=== PATIENT | female | born 1980 | race Caucasian/White ===

== ENCOUNTER 2016-05-06 10:28 | Outpatient (CLI) | payer MEDICAID ==
[~2016-05-06] VITALS: Ht 157.5 cm; Wt 78.7 kg
[~2016-05-06 10:28] MED LIST: FERR325C PO; PREN1TAB49; PREN1TAB49 PO; [UNRECOGNIZED DRUG - CODE] PO
[2016-05-06 10:58] VITALS: Ht 157.5 cm; Wt 78.7 kg
[2016-05-06 10:59] VITALS: BP 101/61; RESP 18
[2016-05-06] MEDS ORDERED: LACTATED RINGER'S 1,000 ML IV STA (16:28)
[2016-05-06] MEDS ORDERED: TERBUTALINE 1 MG/ML INJ SC PRN (16:30)
[2016-05-06] MEDS ORDERED: TERBUTALINE 1 ML ONE (16:32)
[2016-05-06] MEDS ORDERED: LACTATED RINGER'S 1,000 ML IV SCH (17:30)
--- NOTE | 2016-05-06 18:13 | HP ---
Date/Time of Note Date/Time of Note DATE: 05/06/16 TIME: 18:04 OB - History Hx of Present Free Text/Dictation Triage H&P Pt is a 35yo at 38+3 who presented to triage with c/o painful UCs since 0900. Pt reports normal FM, denies LOF or VB. Pt desires an elective Primary Section due to desire for tubal ligation at the time of her delivery and her inability to have an interval tubal. Estimated Due Date: May 17, 2016 : 5 Para: 2 Care: Good Care Obstetrical Complications: None Medical Complications: None Past Family/Social History * Past Medical, Surgical, Family and Obstetric Histories reviewed from chart. OB Admission Exam Vital Signs Vital Signs Vital Signs Date Time Temp Pulse Resp B/P Pulse Ox O2 Delivery O2 Flow Rate FiO2 05/06/16 10:59 98.2 18 101/61 Room Air Physical Exam Cervical Dilatation: None Effacement: Other (60%) Station: -2 Membranes: Intact Heart Rate: 120's Accelerations: Accelerations Present Decelerations: No Decelerations Varibility: Moderate Contractions on Admission: < 5 Minutes Apart (initially, now acontractile) OB Assessment/Plan Other Assessment: Term contractions Other plan: Patient without cervical change manager 2 hours. Given frequent q3 min UCs, Dr. Lopez requested pt receive Terbutaline and IV hydration. After single dose of Terbutaline and hydration, no further contractions were noticed on toco. FWB reassuring, reactive NST. Pt appropriate for d/c home with outpatient f/up and C /S scheduling with Dr. Huffman as scheduled on 05/10/16. FKC, labor and ROM precautions reviewed. Questions answered to patient's satisfaction. LIZZETTE DONOVAN MD May 06, 2016 18:13
== END 2016-05-06 18:50 | disposition home or self-care (01) ==
LOC: OBT 10:28 → L-D 10:29 → OBT 18:50
PROVIDERS: ATTEND Obstetrics & Gynecology
DX: O47.1 False labor at or after 37 completed weeks of gestation (principal); Z3A.38 38 weeks gestation of pregnancy
CPT/HCPCS: 36415; 96360; 96372; J3105; J7120; Z7500; G0463

== ENCOUNTER 2016-05-10 15:07 | Inpatient (IN) | payer BC ==
[~2016-05-10] VITALS: Ht 157.5 cm; Wt 79.1 kg
[~2016-05-10 15:07] MED LIST changes: -PREN1TAB49; -PREN1TAB49 PO
[2016-05-10 15:36] VITALS: BP 90/56; PULSE 104; RESP 18; Ht 157.5 cm; Wt 79.1 kg
--- NOTE | 2016-05-10 16:40 | TRIAGE ---
OB Triage Datetime Report Generated by CPN: 05/10/2016 16:40 Datetime: 05/10/2016 15:59 Vaginal Exam Dilatation (cms): 2.0 Effacement (%): 50 Station: -3 Exam By: MAY Vaginal Bleeding: None Cervix, Consistency: Soft Cervix, Position: Posterior Datetime: 05/10/2016 15:30 Assessment Type: Triage Maternal Assessment Level of Consciousness: Fully Conscious DTR's/Clonus: DTRs 2+; No Clonus Headache: Denies Blurred Vision: No Respiratory Effort: Unlabored; Regular Rhythm; Equal Expansion Breath Sounds, Left: Clear and Equal Breath Sounds, Right: Clear and Equal Nausea/Vomiting: Denies RUQ Epigastric Pain: Denies Lower Extremities Edema: None Degree: None Upper Extremities Edema: None Degree: None Facial Edema: None Fall Risk Assessment History of Falling: (0) No Secondary Diagnosis: (0) No Ambulatory Aid: (0) Bedrest/Nurse Assist IV Therapy: (0) No Gait: (0) Normal/Bedrest/Immobile Mental Status: (0) Oriented to Own Ability Fall Score: 0 Fall Risk Score Definition: No Risk: No action required Datetime: 05/10/2016 15:21 Time of Arrival: 05/10/2016 15:00 EGA: 39.0 Arrived By: Ambulatory Arrived From: Office Chief Complaint: PT SENT IN FOR C/O UC'S Movement: Present Contractions: Irregular Rupture of Membranes: Denies Vaginal Bleeding: None Vaginal Discharge: Denies Recent Sexual Intercouse: Yes Abdominal Trauma: Not Applicable Patient Complaints: Contractions; Cramping Time Provider Notified: 05/10/2016 16:35 Provider Notified: DELSHAD Initial Plan: EFM Datetime: 05/06/2016 17:13 Stage of : OB Triage Labor Evaluation Frequency: x1 Monitor Mode: External Duration (sec)2399: 60 Quality: Mild Resting Tone Iselin: Relaxed Heart Rate FHR Baseline Rate: 125 FHR Baseline Changes: No Baseline Change Variability: Moderate 6-25 bpm Accelerations: 15X15 Decelerations: None Category: Category I Datetime: 05/06/2016 16:55 Stage of : OB Triage Datetime: 05/06/2016 16:39 Stage of : OB Triage Datetime: 05/06/2016 15:30 Labor Evaluation Frequency: IRREGULAR Monitor Mode: External Duration (sec)2399: 40-110 Quality: Moderate Pattern: Normal: <= 5 Contractions in 10 Minutes Resting Tone Iselin: Relaxed Heart Rate FHR Baseline Rate: 135 Monitor Mode: External US FHR Baseline Changes: No Baseline Change Variability: Moderate 6-25 bpm Accelerations: 15X15 Decelerations: None Category: Category I Datetime: 05/06/2016 14:30 Labor Evaluation Frequency: IRREGULAR Monitor Mode: External Duration (sec)2399: 40-100 Quality: Moderate Pattern: Normal: <= 5 Contractions in 10 Minutes Resting Tone Iselin: Relaxed Heart Rate FHR Baseline Rate: 135 Monitor Mode: External US FHR Baseline Changes: No Baseline Change Variability: Moderate 6-25 bpm Accelerations: 15X15 Decelerations: None Category: Category I Datetime: 05/06/2016 14:21 Stage of : OB Triage Vaginal Exam Dilatation (cms): 0.0 Effacement (%): 60 Station: -3 Exam By: M BARBOUR Vaginal Bleeding: None Cervix, Consistency: Soft Cervix, Position: Posterior Datetime: 05/06/2016 13:30 Stage of : OB Triage Labor Evaluation Frequency: 2-7 Monitor Mode: External Duration (sec)2399: 40-120 Quality: Mild Resting Tone Iselin: Relaxed Heart Rate FHR Baseline Rate: 130 FHR Baseline Changes: No Baseline Change Variability: Moderate 6-25 bpm Accelerations: 15X15 Decelerations: None Category: Category I Datetime: 05/06/2016 12:30 Stage of : OB Triage Labor Evaluation Frequency: 3-7 Monitor Mode: External Duration (sec)2399: 40-140 Quality: Mild Resting Tone Iselin: Relaxed Heart Rate FHR Baseline Rate: 135 Monitor Mode: External US FHR Baseline Changes: No Baseline Change Variability: Moderate 6-25 bpm Accelerations: 15X15 Decelerations: Early Category: Category I Datetime: 05/06/2016 11:21 Vaginal Exam Dilatation (cms): 0.0 Effacement (%): 60 Station: -3 Exam By: A GHUKASYNA Datetime: 05/06/2016 11:15 Labor Evaluation Frequency: 2-4 Monitor Mode: External Duration (sec)2399: 40-100 Quality: Moderate Pattern: Normal: <= 5 Contractions in 10 Minutes Resting Tone Iselin: Relaxed Heart Rate FHR Baseline Rate: 140 Monitor Mode: External US Variability: Moderate 6-25 bpm Accelerations: 15X15 Decelerations: None Category: Category I Datetime: 05/06/2016 11:05 Assessment Type: Admission Assessment Maternal Assessment Level of Consciousness: Fully Conscious DTR's/Clonus: DTRs 2+; No Clonus Headache: Denies Blurred Vision: No Respiratory Effort: Unlabored; Regular Rhythm; Equal Expansion Breath Sounds, Left: Clear and Equal Breath Sounds, Right: Clear and Equal Nausea/Vomiting: Denies RUQ Epigastric Pain: Denies Lower Extremities Edema: None Degree: None Upper Extremities Edema: None Degree: None Facial Edema: None Fall Risk Assessment History of Falling: (0) No Secondary Diagnosis: (0) No Ambulatory Aid: (0) Bedrest/Nurse Assist IV Therapy: (0) No Gait: (0) Normal/Bedrest/Immobile Mental Status: (0) Oriented to Own Ability Fall Score: 0 Fall Risk Score Definition: No Risk: No action required Datetime: 05/06/2016 11:01 Time of Arrival: 05/06/2016 10:20 EGA: 38.3 Arrived By: Ambulatory Arrived From: Home Chief Complaint: UC'S SINCE 0400 Movement: Present Contractions: Regular Time Contractions Began: 05/06/2016 04:00 Rupture of Membranes: Denies Vaginal Bleeding: None Vaginal Discharge: Denies Recent Sexual Intercouse: Denies Abdominal Trauma: Not Applicable Patient Complaints: Contractions Time Provider Notified: 05/06/2016 11:36 Provider Notified: DR SKINNER Initial Plan: NST, VE Datetime: 03/22/2016 15:30 Labor Evaluation Frequency: IRREGULAR Monitor Mode: External Duration (sec)2399: 40-100 Duration (sec)2399: 50-90 Quality: Mild Pattern: Normal: <= 5 Contractions in 10 Minutes Resting Tone Iselin: Relaxed Heart Rate FHR Baseline Rate: 140 Monitor Mode: External US FHR Baseline Changes: No Baseline Change Variability: Minimal - Undetectable to <=5 bpm Accelerations: 15X15 Accelerations: 10X10 Decelerations: None Category: Category II Datetime: 03/22/2016 14:45 Labor Evaluation Frequency: OCCAS Monitor Mode: External Duration (sec)2399: 50-100 Quality: Mild Pattern: Normal: <= 5 Contractions in 10 Minutes Resting Tone Iselin: Relaxed Heart Rate FHR Baseline Rate: 140 Monitor Mode: External US FHR Baseline Changes: No Baseline Change Variability: Minimal - Undetectable to <=5 bpm Accelerations: 15X15 Decelerations: None Category: Category II Datetime: 03/22/2016 14:15 Labor Evaluation Frequency: IRREGULAR Monitor Mode: External Duration (sec)2399: 40-110 Quality: Mild Pattern: Normal: <= 5 Contractions in 10 Minutes Resting Tone Iselin: Relaxed Heart Rate FHR Baseline Rate: 140 Monitor Mode: External US FHR Baseline Changes: No Baseline Change Variability: Minimal - Undetectable to <=5 bpm Accelerations: 10X10 Decelerations: None Category: Category II Datetime: 03/22/2016 13:53 Vaginal Exam Dilatation (cms): 0.0 Effacement (%): 0 Station: -4 Exam By: Kael IRELAND Datetime: 03/22/2016 13:41 Assessment Type: Admission Assessment Maternal Assessment Level of Consciousness: Fully Conscious DTR's/Clonus: DTRs 2+; No Clonus Headache: Denies Blurred Vision: No Respiratory Effort: Unlabored; Regular Rhythm; Equal Expansion Breath Sounds, Left: Clear and Equal Breath Sounds, Right: Clear and Equal Nausea/Vomiting: Denies RUQ Epigastric Pain: Denies Lower Extremities Edema: None Degree: None Upper Extremities Edema: None Degree: None Facial Edema: None Fall Risk Assessment History of Falling: (0) No Secondary Diagnosis: (0) No Ambulatory Aid: (0) Bedrest/Nurse Assist IV Therapy: (0) No Gait: (0) Normal/Bedrest/Immobile Mental Status: (0) Oriented to Own Ability Fall Score: 0 Fall Risk Score Definition: No Risk: No action required Datetime: 03/22/2016 13:40 EGA: 32.0 Datetime: 03/22/2016 13:39 Time of Arrival: 03/22/2016 13:12 Arrived By: Ambulatory Arrived From: Home Chief Complaint: ABDOMINAL PAIN Movement: Present Contractions: Irregular Time Contractions Began: 03/21/2016 10:00 Rupture of Membranes: Denies Vaginal Bleeding: None Vaginal Discharge: Denies Recent Sexual Intercouse: Denies Abdominal Trauma: Not Applicable (Annotations: Data stored by CPN on behalf of user) Patient Complaints: Contractions Time Provider Notified: 03/22/2016 13:49 Provider Notified: DR JOHNSON Initial Plan: NST, CERVICAL LENGHT, MARITZA, EFW, IV HYDRATION, CBC, CMP, UA, FFN AND VE
[2016-05-10] MEDS ORDERED: LACTATED RINGER'S 1,000 ML IV SCH (16:49)
[2016-05-10] MEDS ORDERED: MISOPROSTOL 200 MCG TAB PR PRN (17:00)
[2016-05-10] MEDS ORDERED: OXYTOCIN 30 UNITS/LR 500 ML IV PRN (17:00)
[2016-05-10] MEDS ORDERED: OXYTOCIN 30 UNITS/LR 500 ML IV SCH (17:00)
[2016-05-10] MEDS ORDERED: CEFAZOLIN 2 GM/50 ML (PMX) 50 ML IVPB SCH (17:00)
[2016-05-10] MEDS ORDERED: METHYLERGONOVINE 0.2 MG INJ IM PRN (17:00)
[2016-05-10] MEDS ORDERED: CARBOPROST 250 MCG INJ IM PRN (17:00)
[2016-05-10 17:05] LABS: BASOPHILS % 0.2 % (0.0-2.0); EOSINOPHILS % 0.4 % (0.0-7.0); HEMATOCRIT 37.2 % (37.0-47.0); HEMOGLOBIN 12.5 g/dl (12.0-16.0); LYMPHOCYTES # 1.9 10^3/ul (0.8-2.9); LYMPHOCYTES % 26.7 % (15.0-51.0); MEAN CORPUSCULAR HEMOGLOBIN 30.6 pg (29.0-33.0); MEAN CORPUSCULAR HGB CONC 33.7 g/dl (32.0-37.0); MEAN CORPUSCULAR VOLUME 90.9 fl (82.0-101.0); MONOCYTE # 0.5 10^3/ul (0.3-0.9); MONOCYTES % 6.7 % (0.0-11.0); NEUTROPHIL # 4.8 10^3/ul (1.6-7.5); PLATELET COUNT 279 10^3/UL (140-440); RED BLOOD COUNT 4.09 10^6/ul (4.20-5.40); UNCORRECTED WBC 7.3 10^3/ul (4.8-10.8); WHITE BLOOD COUNT 7.3 10^3/ul (4.8-10.8)
[2016-05-10 17:15] LABS: INR 0.96; PROTIME 12.8 Sec (12.2-14.2)
[2016-05-10 17:16] LABS: PARTIAL THROMBOPLASTIN TIME 27.5 Sec (25.0-35.0)
[2016-05-10 17:24] LABS: CONDITION 1; LH ANALYZER COMMENTS 1
[2016-05-10] MEDS ORDERED: LACTATED RINGER'S 1,000 ML IV PRN (18:00)
[2016-05-10] MEDS ORDERED: DEXTROSE 5%-LR 1,000 ML IV SCH (20:00)
--- NOTE | 2016-05-10 21:45 | PREOPHP ---
DATE OF ADMISSION: 05/10/2016 HISTORY OF PRESENT ILLNESS: A 35-year-old female 5, para 2-0-2-2, estimated delivery 2016 at 39 weeks' gestation presented with labor contractions. PAST SURGICAL HISTORY: Unremarkable. ALLERGIES: NO KNOWN ALLERGIES. COURSE: Significant for gestational diabetes. FAMILY HISTORY: Noncontributory. PHYSICAL EXAMINATION: VITAL SIGNS: The patient is afebrile. Vital signs stable. HEAD, NECK, AND CHEST: Within normal limits. ABDOMEN: Soft, nontender and gravid. EXTREMITIES: Within normal limits. NEUROLOGIC: Within normal limits. PELVIC: Cervix is 2 cm dilated. IMPRESSION: at 39 weeks with gestational diabetes. The patient does not desire a trial o f labor and requests delivery by elective primary section. The patient also desires surgic al sterilization. PLAN: Delivery by primary section and bilateral tubal ligation. Risks, benefits, and alte rnatives of the procedures were explained to the patient. The patient has been counseled about all of her contraceptive options. It was explained to the patient that with bilateral tubal ligation th ere is a chance of failure resulting in ectopic and/or intrauterine . After coun seling, the patient said she understood and gave informed consent for the procedures. Dictated By: ROBERTO TORRES/PHAM Conf#: [id number] DID#: [id number]
[2016-05-10] MEDS ORDERED: DIPHENHYDRAMINE 50 MG INJ IV PRN (22:30)
[2016-05-10] MEDS ORDERED: NALOXONE (0.4 MG/ML) INJ IV PRN (22:30)
[2016-05-10] MEDS ORDERED: HYDROmorphONE 1 MG/ML SYG IV PRN ×2 (22:30)
[2016-05-10] MEDS ORDERED: ZOLPIDEM 5 MG TAB PO PRN (22:30)
[2016-05-10] MEDS ORDERED: ONDANSETRON 4 MG INJ IV PRN (22:30)
--- NOTE | 2016-05-10 23:27 | OPR ---
DATE OF OPERATION: 05/10/2016 PREOPERATIVE DIAGNOSES: at 39 weeks with gestational diabetes. The patient desires elect joaquín primary section and bilateral tubal ligation. POSTOPERATIVE DIAGNOSES: at 39 weeks with gestational diabetes. The patient desires elec tive primary section and bilateral tubal ligation. OPERATION PERFORMED: Primary low transverse section and bilateral tubal ligation. SURGEON: Roberto Huffman MD END POLISHER: Tyron Barr MD ANESTHESIA: Spinal. ANESTHESIOLOGIST: Dr. Graf PROCEDURE: The patient was taken to operating room and placed on the operating table. After succes sful spinal anesthesia was given, the patient was placed in supine position. The area was prepared and draped in the usual sterile fashion. Spinal anesthesia was tested and was satisfactory. Using scalpel, Pfannenstiel incision was made about 2 fingerbreadths above the symphysis pubis. The incis ion was carried to fascia. The fascia was incised and extended bilaterally with Lara scissors. Two Kochers were used to separate the fascia from the muscle. The muscle was dissected down to periton eum. The peritoneum was bluntly entered. Using scalpel, a small transverse incision was made in th e dorsum of the uterus. Upon entering uterine cavity, bandage scissors were inserted to extend the incision bilaterally, curved up. Baby was delivered from cephalic presentation. After suctioning c lear of amniotic fluid, baby was handed off to the cap inspector in attendance. Apgars were 9 and 9 . The placenta was delivered without difficulty. The uterus was closed with #1 Vicryl continuous l ocked. After assuring hemostasis, both ovaries and tubes were inspected, all looked normal. The ri ght fallopian tube was grasped with Dharmesh clamp. Using 0 plain suture ligature, a 5 cm segment of the right fallopian tube was doubly ligated. Using Metzenbaum scissors, a portion of the right fal lopian tube above the ligated area was excised and sent to Pathology. Same procedure was repeated o n left fallopian tube. After assuring hemostasis, peritoneal cavity was irrigated with warm saline. The peritoneum was closed with 2-0 Vicryl continuous. The fascia was closed with #1 Vicryl contin uous in 2 segments. The subcutaneous tissue was reapproximated with 2-0 plain. The skin was closed with henry. ESTIMATED BLOOD LOSS: 600 mL COMPLICATIONS: None. COUNTS: All counts were correct. Dictated By: ROBERTO TORRES/PHAM Conf#: [id number] DID#: [id number]
[2016-05-11] MEDS: KETOROLAC 30 MG INJ IV PRN ×3 (01:08→18:18)
--- NOTE | 2016-05-11 01:38 | DELSUM ---
Delivery Summary A-C Datetime Report Generated by CPN: 05/11/2016 01:37 DELIVERY PERSONNEL Transmission Systems Operator: Canuto, Jemima MATERNAL INFORMATION Delivery Anesthesia: Spinal Medications in Delivery: SEE ANESTHESIA RECORD Estimated Blood Loss (ml): 550 Placenta Cultured: No Maternal Complications: Other Other Maternal Complications: GDM LABOR SUMMARY EDC: 05/17/2016 00:00 No. Babies in Womb: 1 Attempted: No Labor Anesthesia: None LABOR INFORMATION Reason for Induction: Not Applicable Onset of Labor: 05/10/2016 11:00 Oxytocin: N/A Group B Beta Strep: Negative Antibiotics # of Doses: 1 Antibiotics Time of Last Dose: ANCEF 2 GMS AT 2145 Steroids Given: None Reason Steroids Not Administered: Not Applicable MEMBRANES Membranes Rupture Method: Artificial Rupture of Membranes: 05/10/2016 21:59 Length of Rupture (hr): 0.02 Amniotic Fluid Color: Clear Amniotic Fluid Amount: Moderate Amniotic Fluid Odor: None STAGES OF LABOR Stage 3 hr: 0 Stage 3 min: 1 Total Time in Labor hr: 11 Total Time in Labor min: 1 CSECTION DELIVERY Primary Indication: Other Other Primary Indication: PT'S CHOICE CSection Urgency: Non Elective CSection Incidence: Primary Labor: Labor Elective: Elective CSection Incision: Lower Uterine Transverse Sterilization Procedure: [place] BABY A INFORMATION Delivery Date/Time: 05/10/2016 22:00 Method of Delivery: Born in Route : No : N/A Forceps: N/A Vacuum Extraction: N/A Shoulder Dystocia : N/A SHOULDER DYSTOCIA BABY A Delivery Date/Time: 05/10/2016 22:00 PRESENTATION/POSITION BABY A Presentation: Cephalic Cephalic Presentation: Vertex Vertex Position: Left Occipital Anterior Breech Presentation: N/A PLACENTA INFORMATION BABY A Placenta Delivery Time : 05/10/2016 22:01 Placenta Method of Delivery: Manual Removal Placenta Status: Delivered SCORES BABY A Heart Rate 1 min: >100 bpm Resp Effort 1 min: Good Cry Reflex Irritability 1 min: Cough/Sneeze/Pulls Away Muscle Tone 1 min: Active Motion Color 1 min: Body [place], Extremit Blue Resuscitation Effort 1 min: Tactile Stimulation SCORE 1 MIN: 9 Heart Rate 5 min: >100 bpm Resp Effort 5 min: Good Cry Reflex Irritability 5 min: Cough/Sneeze/Pulls Away Muscle Tone 5 min: Active Motion Color 5 min: Body [place], Extremit Blue Resuscitation Effort 5 min: Tactile Stimulation SCORE 5 MIN: 9 INFANT INFORMATION BABY A Gestational Age at Delivery: 39.0 Gestational Status: Full Term- 39- 40.6 Weeks Outcome : Liveborn Condition : Stable Sex: Female IDENTIFICATION/MEDS BABY A ID Band Number: [id number] ID Band Location: Right Leg; Left Arm Sensor Applied: Yes Sensor Number: [id number] Sensor Location : Cord Clamp Vitamin K Given : Not Given Erythromycin Given: Not Given WEIGHT/LENGTH BABY A Birthweight (gm): 4105 Weight (lb): 9 Infant Weight (oz): 1 Infant Length (in): 20.00 Infant Length (cm): 50.80 CORD INFORMATION BABY A No. Cord Vessels: 3 Nuchal Cord : N/A Cord Blood Taken: Yes Infant Suction: Nose; Pharynx ASSESSMENT BABY A Infant Complications: None Physical Findings at Delivery: Within Normal Limits Infant Respirations: Appears Normal Poultry Farmer Egg/ALS Called : No Care By: HARDEEP Transferred To: Remains with Mother
[2016-05-11 02:15] VITALS: BP 112/58; PULSE 70; RESP 18
[2016-05-11] MEDS ORDERED: LANOLIN 7 GM TUBE TOP PRN (03:00)
[2016-05-11] MEDS ORDERED: MISOPROSTOL 200 MCG TAB PR PRN (03:00)
[2016-05-11] MEDS ORDERED: CARBOPROST 250 MCG INJ IM PRN (03:00)
[2016-05-11] MEDS ORDERED: METHYLERGONOVINE 0.2 MG INJ IM PRN (03:00)
[2016-05-11] MEDS ORDERED: OXYTOCIN 30 UNITS/LR 500 ML IV PRN (03:00)
[2016-05-11 04:00] VITALS: BP 105/59; PULSE 76; RESP 18
[2016-05-11] MEDS: LACTATED RINGER'S 1,000 ML IV SCH ×3 (06:57→18:46)
[2016-05-11 08:00] VITALS: BP 97/52; PULSE 85; RESP 18
--- NOTE | 2016-05-11 08:28 | QN ---
Documentation Comment No complaint. Afebrile VSS Abdomen soft POD #1 Stable Ambulate Advance diet. ROBERTO JOHNSON MD May 11, 2016 08:28
[2016-05-11 08:33] LABS: BASOPHILS % 0.2 % (0.0-2.0); EOSINOPHILS % 0.1 % (0.0-7.0); HEMATOCRIT 33.7 % (37.0-47.0); HEMOGLOBIN 11.6 g/dl (12.0-16.0); LYMPHOCYTES % 20.3 % (15.0-51.0); MEAN CORPUSCULAR HEMOGLOBIN 31.7 pg (29.0-33.0); MEAN CORPUSCULAR HGB CONC 34.5 g/dl (32.0-37.0); MEAN CORPUSCULAR VOLUME 91.9 fl (82.0-101.0); MEAN PLATELET VOLUME 8.2 fl (7.4-10.4); MONOCYTE # 0.5 10^3/ul (0.3-0.9); NEUTROPHIL # 7.3 10^3/ul (1.6-7.5); NEUTROPHILS % 74.4 % (39.0-77.0); PLATELET COUNT 249 10^3/UL (140-440); RED BLOOD COUNT 3.67 10^6/ul (4.20-5.40); RED CELL DISTRIBUTION WIDTH 18.4 % (11.5-14.5); UNCORRECTED WBC 9.9 10^3/ul (4.8-10.8); WHITE BLOOD COUNT 9.9 10^3/ul (4.8-10.8)
[2016-05-11 08:39] LABS: CONDITION 1; LH ANALYZER COMMENTS 1
[2016-05-11 12:00] VITALS: BP 91/53; PULSE 84; RESP 16
[2016-05-11 16:00] VITALS: BP 97/56; PULSE 85; RESP 18
[2016-05-11 20:00] VITALS: BP 107/61; PULSE 77; RESP 19
[2016-05-11] MEDS: SENNA/DOCUSATE NA (8.6MG/50MG) TAB PO SCH (21:06)
[2016-05-11] MEDS ORDERED: OXYCODONE/ACETAMINOPHEN (5/325) TAB PO PRN (21:40)
[2016-05-11] MEDS: OXYCODONE/ACETAMINOPHEN (5/325) TAB PO PRN (21:54)
[2016-05-11] MEDS: IBUPROFEN 800 MG TAB PO SCH (21:54)
[2016-05-12] MEDS: OXYCODONE/ACETAMINOPHEN (5/325) TAB PO PRN ×3 (03:32→22:19)
[2016-05-12 04:00] VITALS: BP 92/64; PULSE 90; RESP 18
[2016-05-12] MEDS: IBUPROFEN 800 MG TAB PO SCH ×3 (05:40→21:09)
[2016-05-12] MEDS: LACTATED RINGER'S 1,000 ML IV SCH ×2 (07:40→07:41)
[2016-05-12] MEDS: OXYTOCIN 30 UNITS/LR 500 ML IV SCH (07:40)
[2016-05-12] MEDS ORDERED: INFLUENZA VIRUS VACCINE 0.5 ML (DISPENSING) IM* ONE (09:00)
[2016-05-12] MEDS: SENNA/DOCUSATE NA (8.6MG/50MG) TAB PO SCH ×2 (09:33→21:09)
[2016-05-12 16:00] VITALS: BP 104/63; PULSE 79; RESP 18
[2016-05-12 20:00] VITALS: BP 94/60; PULSE 86; RESP 18
[2016-05-13 04:00] VITALS: BP 95/55; PULSE 81; RESP 18
--- NOTE | 2016-05-13 04:26 | DS ---
DATE OF ADMISSION: 05/10/2016 DATE OF DISCHARGE: 05/13/2016 ADMITTING DIAGNOSIS: at term with gestational diabetes, in labor. HISTORY: A 35-year-old female 5, para 2-0-2-2 at the time of admission, para 3-0-2-3 at the time of discharge with term , presented with labor contractions. course signific ant for gestational diabetes. The patient requested elective primary section and also bila teral tubal ligation. On 05/10/2016, after obtaining informed consent, the patient underwent a prim amalia low transverse section and bilateral tubal ligation. The patient's operation was uncom plicated. Postoperatively, the patient was given clear liquid diet which was advanced to regular di et which she tolerated well. The patient is discharged on postop day #3 after having had adequate b ladder and bowel function. CONDITION ON DISCHARGE: Stable. DISCHARGE INSTRUCTIONS DIET: Regular. ACTIVITIES: Pelvic rest and no strenuous activities. MEDICATIONS: 1. Motrin as needed for pain. 2. Continue with vitamins and ferrous sulfate. FOLLOWUP: Follow up in clinic in 1 week. FINAL DIAGNOSES 1. Term delivered by section. 2. Elective primary section. 3. Gestational diabetes. 4. Voluntary sterilization. 5. Mother with single liveborn. Dictated By: ROBERTO TORRES/PHAM Conf#: [id number] DID#: [id number]
[2016-05-13] MEDS: IBUPROFEN 800 MG TAB PO SCH ×2 (06:03→14:28)
[2016-05-13 07:40] VITALS: BP 101/65; PULSE 86; RESP 17
[2016-05-13] MEDS ORDERED: DIPHTH/TET/ACEL PERTUSS (ADULT) 0.5 ML VIAL IM* ONE (09:00)
[2016-05-13] MEDS: SENNA/DOCUSATE NA (8.6MG/50MG) TAB PO SCH (09:14)
[2016-05-13] MEDS: OXYCODONE/ACETAMINOPHEN (5/325) TAB PO PRN (12:50)
[2016-05-13 15:30] VITALS: BP 105/68; PULSE 79; RESP 19
== END 2016-05-13 16:45 | disposition home or self-care (01) | DRG 766 ==
LOC: L-D 15:07 → OBT 15:07 → L-D 16:30 → OBT 16:30 → L-D 21:27 → PP1 05-11 02:07
PROVIDERS: ADMIT Obstetrics & Gynecology; ATTEND Obstetrics & Gynecology
PROC: 0UL70ZZ Occlusion of Bilateral Fallopian Tubes, Open Approach (ICD-10-PCS; 2016-05-10)
PROC: 10D00Z1 Extraction of Products of Conception, Low, Open Approach (ICD-10-PCS; principal; 2016-05-10 22:30)
PROC: 3E00X4Z Introduction of Serum, Toxoid and Vaccine into Skin and Mucous Membranes, External Approach (ICD-10-PCS; 2016-05-13)
DX: O24.429 Gestational diabetes mellitus in childbirth, unspecified control (principal); Z23 Encounter for immunization; Z30.2 Encounter for sterilization; Z3A.39 39 weeks gestation of pregnancy; Z37.0 Single live birth
CPT/HCPCS: 82962; 85025; 85610; 85730; 86592; 86850; 86900; 86901; 87340; 88302; 88307; 90686; 90715; 99464; G0463; J0690; J1885; J2590; J7120; J7121